=== PATIENT | male | born 1975 | race Caucasian/White ===

== ENCOUNTER 2022-06-25 18:26 | Emergency (ER) | payer OTHER ==
[2022-06-25 20:04] LABS: INFLUENZA A NAA NEGATIVE (NEGATIVE)
[2022-06-25 20:06] LABS: CORONAVIRUS 2019 SARS-COV-2 POSITIVE (NEGATIVE)
[2022-06-25] MEDS ORDERED: NORCO 5-325 TA1 EACH PO (22:11)
[2022-06-25] MEDS ORDERED: MEDROL 4MG DOSEP4 MG PO (22:11)
[2022-06-25] MEDS ORDERED: PHENERGAN25 M1 PO (22:11)
[2022-06-25] MEDS ORDERED: ONDANSETRON ODT4 MG PO (22:11)
[2022-06-25] MEDS ORDERED: CIPRO500 MG PO (22:13)
[2022-06-25] MEDS ORDERED: METRONIDAZOLE500 MG PO (22:13)
== END 2022-06-25 22:20 | disposition home or self-care (01) ==
LOC: FER 18:26
PROVIDERS: Internal Medicine
DX: U07.1 COVID-19 (principal); R10.32 Left lower quadrant pain; Z28.311 Partially vaccinated for COVID-19
CPT/HCPCS: 99284; U0002

== ENCOUNTER 2022-06-27 11:51 | Emergency (ER) | payer OTHER ==
[~2022-06-27 11:51] MED LIST: CIPRO500 MG PO; MEDROL 4MG DOSEP4 MG PO; METRONIDAZOLE500 MG PO; NORCO 5-325 TA1 EACH PO; ONDANSETRON ODT4 MG PO; PHENERGAN25 M1 PO
[2022-06-27 12:34] LABS: BASOPHIL 0.5 % (0-2); EOSINOPHIL 1.5 % (0-5); HGB 14.1 g/dl (13.2-18.0); LYMPHOCYTE 17.8 % (15-48); MCH 31.3 pg (25.0-31.0); MCHC 34.4 g/dL (32.0-36.0); MCV 90.9 fL (78.0-100.0); MONOCYTE 14.7 % (0-12); MPV 10.6 fL (6.0-9.5); NEUTROPHIL 64.8 % (41-80); NRBC 0; PLT 130 K/uL (150-400); RBC 4.51 M/uL (4.70-6.00); RDW 12.6 % (11.5-14.0); WBC 6.1 K/uL (4.0-10.5)
[2022-06-27 12:49] LABS: BILIRUBIN NEGATIVE (NEGATIVE); BLOOD TRACE-INTACT Ery/uL (NEGATIVE); CLARITY CLEAR (CLEAR); COLOR YELLOW (YELLOW); GLUCOSE (U) NORMAL (NORMAL); LEUKOCYTES NEGATIVE Leu/uL (NEGATIVE); NITRITE NEGATIVE (NEGATIVE); PROTEIN NEGATIVE (NEGATIVE); SPECIFIC GRAVITY 1.025 (1.001-1.030); UROBILINOGEN 0.2 mg/dL (0.2-1.0)
[2022-06-27 13:00] LABS: BACTERIA 1+; MUCOUS TRACE; SPERM PRESENT
[2022-06-27 13:24] LABS: ALBUMIN 3.6 g/dL (3.4-5.0); BILIRUBIN - TOTAL 0.6 mg/dL (0.2-1.0); BUN/CREAT RATIO (CALC) 7.6 RATIO; CREATININE 0.79 mg/dL (0.67-1.17); POTASSIUM 3.7 mmol/L (3.5-5.1); TOTAL PROTEIN 6.6 g/dL (6.4-8.2)
[2022-06-27] MEDS ORDERED: NORCO 5-325 TA1 EACH PO (15:03)
== END 2022-06-27 15:43 | disposition home or self-care (01) ==
LOC: FER 11:51
PROVIDERS: Nurse Practitioner Family
DX: K57.32 Diverticulitis of large intestine without perforation or abscess without bleeding (principal); Z28.311 Partially vaccinated for COVID-19
CPT/HCPCS: 36415; 80053; 81001; 85025; J2270; J2405; J7030; Q9967